=== PATIENT | female | born 1995 | race Caucasian/White ===

== ENCOUNTER 2020-04-19 13:17 | Outpatient (CLI) | payer BC ==
[2020-04-19 13:50] LABS: ALBUMIN 4.7 G/DL (3.4-5.0); ANION GAP 6 (8-16); BLOOD UREA NITROGEN 9 MG/DL (7-18); BUN/CREATININE RATIO 11.7 (6.6-38.0); CALCIUM 9.3 MG/DL (8.5-10.1); CHLORIDE 102 MMOL/L (99-107); CREATININE 0.77 MG/DL (0.40-0.90); GLUCOSE 95 MG/DL (70-104); POTASSIUM 4.1 MMOL/L (3.5-5.1); SODIUM 137 MMOL/L (135-145); TOTAL CARBON DIOXIDE 28.6 MMOL/L (24-32); eGFR > 90 ML/MIN
== END 2020-04-19 23:59 | disposition home or self-care (01) ==
LOC: LAB 13:17
DX: F64.0 Transsexualism (principal)
CPT/HCPCS: 36415; 80048

== ENCOUNTER 2022-09-26 07:16 | Outpatient (CLI) | payer BC ==
[2022-09-26 08:33] LABS: BASOPHILS # (AUTO) 0.1 X10'3 (0-0.2); BASOPHILS % (AUTO) 0.6 % (0-1); EOSINOPHILS # (AUTO) 0.3 X10'3 (0-0.9); EOSINOPHILS % (AUTO) 2.5 % (0-6); HEMATOCRIT 40.3 % (35.0-45.0); HEMOGLOBIN 14.1 g/dl (12.0-16.0); LYMPHOCYTES # (AUTO) 2.2 X10'3 (1.1-4.8); LYMPHOCYTES % (AUTO) 18.9 % (21-51); MEAN CORPUSCULAR HEMOGLOBIN 31.8 PG (27.0-31.0); MEAN CORPUSCULAR VOLUME 90.8 FL (78-98); MEAN PLATELET VOLUME 6.9 FL (7.4-10.4); MONOCYTES # (AUTO) 0.6 X10'3 (0-0.9); NEUTROPHILS # (AUTO) 8.5 X10'3 (1.8-7.7); PLATELET COUNT 370 X10'3 (140-440); RED BLOOD COUNT 4.44 X10'6 (4.20-5.60); WHITE BLOOD COUNT 11.6 X10'3 (4.5-11.0)
[2022-09-26 08:36] LABS: CLARITY,URINE CLEAR (Clear); COLOR,URINE YELLOW (Yellow); GLUCOSE, URINE NEGATIVE (Neg); KETONES,URINE NEGATIVE (Neg); LEUKOCYTE ESTERASE ,URINE NEGATIVE (Neg); NITRITES, URINE NEGATIVE (Neg); OCCULT BLOOD,URINE NEGATIVE (Neg); PH,URINE 6.5 (4.8-8.0); PROTEIN,URINE NEGATIVE (Neg); UROBILINOGEN,URINE 0.2 E.U/dL (0.2-1.0)
[2022-09-26 08:38] LABS: UA COLLECTION TYPE CLN CATCH MIDSTREAM
[2022-09-26 09:36] LABS: HIV ANTIBODY 1&2 RAPID NON-REACTIVE (Neg)
[2022-09-26 10:36] LABS: ALANINE AMINOTRANSFERASE 32 U/L (12-78); ALBUMIN 4.1 G/DL (3.4-5.0); ALBUMIN/GLOBULIN RATIO 1.3 (1.1-1.5); ALKALINE PHOSPHATASE 71 IU/L (46-116); ANION GAP 9 (8-16); ASPARTATE AMINO TRANSFERASE 22 U/L (10-37); BILIRUBIN,TOTAL 0.7 MG/DL (0.1-1.0); BLOOD UREA NITROGEN 16 MG/DL (7-18); BUN/CREATININE RATIO 20.3 (10.0-20.0); CALCIUM 9.3 MG/DL (8.5-10.1); CHLORIDE 103 MMOL/L (99-107); CREATININE 0.79 MG/DL (0.40-0.90); GLUCOSE 81 MG/DL (70-104); POTASSIUM 3.7 MMOL/L (3.5-5.1); SODIUM 136 MMOL/L (135-145); TOTAL CARBON DIOXIDE 24.2 MMOL/L (24-32); TOTAL PROTEIN 7.2 G/DL (6.4-8.2); eGFR 86 ML/MIN
[2022-09-26 10:38] LABS: CHOL/HDL RATIO 3.3 (0.00-4.99); CHOLESTEROL 147 MG/DL (0-200); HDL CHOLESTEROL 45 MG/DL (35-60); LDL CHOLESTEROL 84 MG/DL (50-100); TRIGLYCERIDES 146 MG/DL (20-135)
[2022-09-26 10:44] LABS: C-REACTIVE PROTEIN < 0.05 MG/DL (0.0-0.5)
[2022-09-27 12:59] LABS: ANTISTREPTOLYSIN O AB 264.8 IU/mL (0.0-200.0)
[2022-09-27 19:45] LABS: ANTINUCLEAR ANTIBODIES Negative (Negative)
[2022-09-28 07:49] LABS: HBSAG SCREEN Negative (Negative); HEP A AB, IGM Negative (Negative); HEPATITIS C VIRUS ANTIBODY Non Reactive (Non Reactive)
== END 2022-09-26 23:59 | disposition home or self-care (01) ==
LOC: LAB 07:16
PROVIDERS: ATTEND Nurse Practitioner
DX: Z00.00 Encounter for general adult medical examination without abnormal findings (principal); K21.9 Gastro-esophageal reflux disease without esophagitis; J30.2 Other seasonal allergic rhinitis; Z82.61 Family history of arthritis; Z79.890 Hormone replacement therapy
CPT/HCPCS: 36415; 80053; 80061; 80074; 81003; 82627; 84155; 84165; 84439; 84443; 85025; 86038; 86060; 86140; 86617; 86695; 86696; 86703; 87389

== ENCOUNTER 2022-12-13 08:34 | Outpatient (CLI) | payer BC | END 2022-12-13 23:59 | disposition home or self-care (01) | LOC: RAD 08:34 | PROVIDERS: ATTEND Family Medicine | DX: E04.2 Nontoxic multinodular goiter (principal); E07.9 Disorder of thyroid, unspecified | CPT/HCPCS: 76536 ==

== ENCOUNTER → 2023-05-16 | Outpatient (CLI) | payer BC ==
[2023-05-16 17:26] LABS: FREE T4 (FREE THYROXINE) 0.76 NG/DL (0.73-1.40); THYROID STIMULATING HORMONE 1.09 ulU/ml (0.34-4.50)
== END | disposition home or self-care (01) ==
LOC: LAB 16:31
PROVIDERS: ATTEND Family Medicine
DX: E01.0 Iodine-deficiency related diffuse (endemic) goiter (principal)
CPT/HCPCS: 36415; 84439; 84443; 86376

== ENCOUNTER 2023-07-27 17:13 | Emergency (ER) | payer BC ==
[~2023-07-27] VITALS: Ht 167.6 cm; Wt 89.8 kg
[2023-07-27 17:32] VITALS: TEMP 98
[2023-07-27] MEDS: HYDROcodone/acetaminophen 5mg/325mg tablet PO ONE (20:16)
[2023-07-27] MEDS ORDERED: HYDR-3965 PO (20:29)
[2023-07-27 20:51] VITALS: BP 116/78; PULSE 76; RESP 16; O2SAT 99
== END 2023-07-27 20:56 | disposition home or self-care (01) ==
LOC: ER 17:14
DX: S42.001A Fracture of unspecified part of right clavicle, initial encounter for closed fracture (principal); W13.4XXA Fall from, out of or through window, initial encounter; Y93.89 Activity, other specified; Y92.89 Other specified places as the place of occurrence of the external cause; Y99.8 Other external cause status
CPT/HCPCS: 73030; 99284; A4565

== ENCOUNTER 2024-03-22 12:10 | Outpatient (CLI) | payer BC ==
[2024-03-22 12:55] LABS: BILIRUBIN,URINE NEGATIVE (Neg); COLOR,URINE YELLOW (Yellow); GLUCOSE, URINE NEGATIVE (Neg); KETONES,URINE NEGATIVE (Neg); LEUKOCYTE ESTERASE ,URINE NEGATIVE (Neg); NITRITES, URINE NEGATIVE (Neg); OCCULT BLOOD,URINE TRACE-INTACT (Neg); PROTEIN,URINE NEGATIVE (Neg); UROBILINOGEN,URINE 0.2 E.U/dL (0.2-1.0)
[2024-03-22 12:56] LABS: CLARITY,URINE SLIGHTLY CLOUDY (Clear); UA COLLECTION TYPE CLN CATCH MIDSTREAM
[2024-03-22 12:59] LABS: BASOPHILS % (AUTO) 0.5 % (0-1); EOSINOPHILS # (AUTO) 0.2 X10'3 (0-0.9); EOSINOPHILS % (AUTO) 2.3 % (0-6); HEMATOCRIT 42.2 % (35.0-45.0); HEMOGLOBIN 14.7 g/dl (12.0-16.0); LYMPHOCYTES # (AUTO) 1.9 X10'3 (1.1-4.8); LYMPHOCYTES % (AUTO) 28.3 % (21-51); MEAN CORPUSCULAR HEMOGLOBIN 31.7 PG (27.0-31.0); MEAN CORPUSCULAR VOLUME 90.7 FL (78-98); MEAN PLATELET VOLUME 6.7 FL (7.4-10.4); MONOCYTES # (AUTO) 0.4 X10'3 (0-0.9); MONOCYTES % (AUTO) 5.2 % (2-12); NEUTROPHILS # (AUTO) 4.3 X10'3 (1.8-7.7); NEUTROPHILS % (AUTO) 63.7 % (42-75); PLATELET COUNT 334 X10'3 (140-440); RED BLOOD COUNT 4.65 X10'6 (4.20-5.60); RED CELL DISTRIBUTION WIDTH 13.6 % (11.5-14.5); WHITE BLOOD COUNT 6.8 X10'3 (4.5-11.0)
[2024-03-22 13:03] LABS: BACTERIA,URINE NONE SEEN /HPF (Neg); RBC,URINE 0-2 /HPF (0-2); SQUAMOUS EPITHELIAL CELL,UR MODERATE /LPF (FEW); WBC,URINE 0-4 /HPF (0-4)
[2024-03-22 13:09] LABS: HEMOGLOBIN A1C 4.3 % (4.5-6.2)
[2024-03-22 13:12] LABS: ALANINE AMINOTRANSFERASE 17 U/L (12-78); ALBUMIN 4.5 G/DL (3.4-5.0); ALBUMIN/GLOBULIN RATIO 1.3 (1.1-1.5); ALKALINE PHOSPHATASE 74 IU/L (46-116); ANION GAP 7 (8-16); ASPARTATE AMINO TRANSFERASE 10 U/L (10-37); BILIRUBIN,TOTAL 1.5 MG/DL (0.1-1.0); BLOOD UREA NITROGEN 8 MG/DL (7-18); BUN/CREATININE RATIO 9.1 (10.0-20.0); CALCIUM 9.3 MG/DL (8.5-10.1); CHLORIDE 106 MMOL/L (99-107); CREATININE 0.88 MG/DL (0.40-0.90); GLUCOSE 91 MG/DL (70-104); POTASSIUM 3.8 MMOL/L (3.5-5.1); SODIUM 140 MMOL/L (135-145); TOTAL CARBON DIOXIDE 27.5 MMOL/L (24-32); eGFR 75 ML/MIN
[2024-03-22 13:22] LABS: CHOLESTEROL 162 MG/DL (0-200); FREE T4 (FREE THYROXINE) 0.94 NG/DL (0.73-1.40); HDL CHOLESTEROL 54 MG/DL (35-60); LDL CHOLESTEROL 94 MG/DL (50-100); THYROID STIMULATING HORMONE 1.09 ulU/ml (0.34-4.50); TRIGLYCERIDES 93 MG/DL (20-135)
[2024-03-25 19:07] LABS: CHLAMYDIA TRACHOMATIS, NAA Negative (Negative)
[2024-03-26 05:13] LABS: HEP B CORE AB, TOT Negative (Negative); HEPATITIS C VIRUS ANTIBODY Non Reactive (Non Reactive); HIV-1 RNA Non Reactive (Non Reactive); HIV-2 RNA Non Reactive (Non Reactive); HSV TYPE 1-SPECIFIC AB, IGG Non Reactive (Non Reactive)
== END 2024-03-22 23:59 | disposition home or self-care (01) ==
LOC: RAD 12:10
PROVIDERS: ATTEND Student in an Organized Health Care Education/Training Program
DX: Z13.1 Encounter for screening for diabetes mellitus (principal); Z11.3 Encounter for screening for infections with a predominantly sexual mode of transmission; Z13.29 Encounter for screening for other suspected endocrine disorder; Z13.220 Encounter for screening for lipoid disorders; Z00.00 Encounter for general adult medical examination without abnormal findings
CPT/HCPCS: 36415; 80053; 80061; 81001; 83036; 84439; 84443; 85025; 86592; 86695; 86704; 86706; 86708; 86803; 87491; 87522; 87535; 87538

== ENCOUNTER 2024-08-31 12:43 | Outpatient (CLI) | payer BC ==
[2024-08-31 13:13] LABS: CREATININE 0.96 MG/DL (0.40-0.90); POTASSIUM 3.8 MMOL/L (3.5-5.1); eGFR 68 ML/MIN
[2024-09-02 11:21] LABS: ESTRADIOL 13.8 pg/mL (.)
[2024-09-02 15:10] LABS: TESTOSTERONE, SERUM 617 ng/dL (8-60)
== END 2024-08-31 23:59 | disposition home or self-care (01) ==
LOC: LAB 12:43
PROVIDERS: ATTEND Registered Nurse
DX: F64.9 Gender identity disorder, unspecified (principal)
CPT/HCPCS: 36415; 82565; 82670; 84132; 84402; 84403

== ENCOUNTER 2024-11-26 15:42 | Outpatient (CLI) | payer BC ==
[2024-11-26 16:24] LABS: LEUKOCYTE ESTERASE ,URINE NEGATIVE (Neg); MEAN PLATELET VOLUME 7.4 FL (7.4-10.4); NITRITES, URINE NEGATIVE (Neg); OCCULT BLOOD,URINE NEGATIVE (Neg); RED CELL DISTRIBUTION WIDTH 13.8 % (11.5-14.5)
[2024-11-26 16:30] LABS: UA COLLECTION TYPE CLN CATCH MIDSTREAM
[2024-11-26 16:48] LABS: CHOL/HDL RATIO 2.9 (0.00-4.99); CREATININE 0.78 MG/DL (0.40-0.90); LDL CHOLESTEROL 103 MG/DL (50-100); TOTAL CARBON DIOXIDE 27.0 MMOL/L (24-32); eGFR 86 ML/MIN
[2024-11-26 17:08] LABS: HIV ANTIBODY 1&2 RAPID NON-REACTIVE (Neg)
[2024-11-28 07:11] LABS: ESTRADIOL 109.0 pg/mL (.); FSH, SERUM 12.3 mIU/mL (.); LUTEINIZING HORMONE 10.9 mIU/mL (.); PROGESTERONE 1.7 ng/mL (.); TESTOSTERONE, SERUM 205 ng/dL (8-60)
[2024-12-01 05:12] LABS: HBSAG SCREEN Negative (Negative); HEP A AB, IGM Negative (Negative); HEP B CORE AB, IGM Negative (Negative); HEPATITIS C VIRUS ANTIBODY Non Reactive (Non Reactive)
[2024-12-01 09:19] LABS: TESTOSTERONE, FREE, DIRECT 4.1 pg/mL (0.0-4.2)
== END 2024-11-26 23:59 | disposition home or self-care (01) ==
LOC: RAD 15:42
PROVIDERS: ATTEND Nurse Practitioner Family
DX: Z00.01 Encounter for general adult medical examination with abnormal findings (principal); Z11.3 Encounter for screening for infections with a predominantly sexual mode of transmission; E34.9 Endocrine disorder, unspecified; Z13.29 Encounter for screening for other suspected endocrine disorder
CPT/HCPCS: 80053; 80061; 80074; 81003; 82670; 83001; 83002; 84144; 84402; 84403; 84439; 84443; 85025; 86592; 86695; 86703; 87491

== ENCOUNTER 2024-12-08 10:57 | Outpatient (CLI) | payer BC ==
--- NOTE | 2024-12-08 13:35 | VASCULAR REPORT ---
Carotid Duplex Date: 12/08/2024 11:04 AM Clinical History: Syncope Comparison: US ULTRASOUND HEAD NECK on DOS: 12/13/22 Technique: Duplex Doppler evaluation of the extracranial carotid and vertebral arteries including color Doppler and spectral/pulsed waveform analysis was performed. Doppler Spectral Velocity Analysis Right Left pCCA 94/21 cm/s pCCA 104/25 cm/s dCCA 109/23 cm/s dCCA 98/22 cm/s ECA 78/ cm/s ECA 84/ cm/s pICA 129/29 cm/s pICA 106/28 cm/s Harjinder 86/31 cm/s Harjinder 114/34 cm/s dICA 78/35 cm/s dICA 71/33 cm/s Vert. 38/14 cm/s Vert. 44/19 cm/s Subcl. 175/ cm/s Subcl. 94/ cm/s ICA/CCA 1.18 ICA/CCA 1.16 CONCLUSION No sonographic evidence of stenosis or occlusion in bilateral carotid arteries. Bilateral common carotid arteries showed less than 50% stenosis. Bilateral external carotid arteries showed less than 50% stenosis. Bilateral internal carotid arteries showed less than 50% stenosis. Antegrade flow noted in bilateral vertebral arteries. Multiphasic flow noted in bilateral subclavian arteries.
--- NOTE | 2024-12-08 19:06 | CARDIOLOGY REPORT ---
APPROVED REPORT EXAM: Comprehensive 2D, Doppler, and color-flow Echocardiogram. Patient Location: OUT-PATIENT Blood Pressure: 120/80 mmHg Heart Rate: 72 bpm Rhythm: NSR Indications Syncope No aromatherapist No previous echo 2D Dimensions LA Diam 3.3 cm IVSd 1.2 (0.7-1.1cm) LVDd 4.3 cm PWd 1.2 (0.7-1.1cm) IVSs 1.4 (0.8-1.2cm) LVDs 2.6 (2.5-4.0cm) Aortic Root(2D) 3.1 cm PWs 1.3 (0.8-1.2cm) LVOT Diameter 2.12 (1.8-2.4cm) LVEF(%) 71.8 (>50%) Ao Asc Diam. 2.72 cm IVC 14.83 mm FS (%) 40.8 % SV 61.1 ml M-Mode Dimensions MV EPSS 0.4 (<0.5cm) Aortic Valve AoV Peak Jef. 148.5 cm/s AoV VTI 29.7 cm AO Peak GR. 8.8 mmHg AO Mean GR. 5 mmHg LVOT VTI 25.99 cm LVOT Peak Jef. 130.8 cm/s ERNESTO (VMAX) 3.10 cm2 ERNESTO (VTI) 3.07 cm2 Mitral Valve MV E Velocity 108.5 cm/s MV DECEL TIME 225 ms MV A Velocity 39.9 cm/s MV PHT 58 ms E/A Ratio 2.7 MVA (PHT) 3.81 cm2 TDI E/Medial E' 5.9 Tricuspid Valve RAP ESTIMATE 10 mmHg Pulmonary Vein S2 Velocity 78.25 cm/s PVa Duration 86 msec LEFT VENTRICLE Normal LV size and function. Mild concentric hypertrophy. LVEF is 65%. RIGHT VENTRICLE RV appears mildly dilated with normal contractility. ATRIA The left atrium size is normal. AORTIC VALVE The aortic valve is normal in structure. No aortic regurgitation is present. MITRAL VALVE MV is thickened with no annular calcification or stenosis. Trace mitral regurgitation. TRICUSPID VALVE The tricuspid valve is normal in structure. Trace tricuspid regurgitation. PULMONIC VALVE The pulmonary valve is normal in structure. Trace pulmonic regurgitation. GREAT VESSELS The aortic root is normal in size. The ascending aorta is normal in size. The IVC is normal in size and collapses >50% with inspiration. PERICARDIUM There is no pericardial effusion. Other Information Study Quality: Adequate Conclusion Normal LV size and function. Mild concentric hypertrophy. LVEF is 65%. RV appears mildly dilated with normal contractility. The left atrium size is normal. The aortic valve is normal in structure. No aortic regurgitation is present. MV is thickened with no annular calcification or stenosis. Trace mitral regurgitation. The tricuspid valve is normal in structure. Trace tricuspid regurgitation. The pulmonary valve is normal in structure. Trace pulmonic regurgitation. There is no pericardial effusion.
== END 2024-12-08 23:59 | disposition home or self-care (01) ==
LOC: VAS 10:57
PROVIDERS: ATTEND Nurse Practitioner Family
DX: I34.0 Nonrheumatic mitral (valve) insufficiency (principal); Z87.898 Personal history of other specified conditions; I51.7 Cardiomegaly
CPT/HCPCS: 93306; 93880